=== PATIENT | female | born 1945 | race Caucasian/White ===

== ENCOUNTER 2023-10-03 18:00 | Emergency (ER) | payer OTHER ==
[2023-10-03 18:42] VITALS: PULSE 79; RESP 18; TEMP 98.2; BMI 19.8
[2023-10-03] MEDS ORDERED: DIPHTH,PERTUSS(ACELL),TET 0.5 ML DISP.SYRIN IM ONE ×2 (18:52→19:09)
[2023-10-04 02:41] VITALS: BP 121/51
== END 2023-10-04 02:41 ==
LOC: FER 18:00
PROC: 3E0234Z Introduction of Serum, Toxoid and Vaccine into Muscle, Percutaneous Approach (ICD-10-PCS; principal; 2023-10-03)
DX: S01.01XA Laceration without foreign body of scalp, initial encounter (principal); W01.0XXA Fall on same level from slipping, tripping and stumbling without subsequent striking against object, initial encounter; W22.8XXA Striking against or struck by other objects, initial encounter; Y92.128 Other place in nursing home as the place of occurrence of the external cause
CPT/HCPCS: 70450-TC; 72125-TC; 90471; 90715; 99284-25